=== PATIENT | female | born 1980 | race African-American/Black ===

== ENCOUNTER 2020-02-12 22:02 | Emergency (ER) | payer SELFPAY ==
[~2020-02-12] VITALS: Ht 152.4 cm; Wt 96.4 kg
[~2020-02-12 22:02] MED LIST: PNV1TABL17 PO
[2020-02-13] MEDS ORDERED: KETOROLAC TROMETHAMINE 30 MG/ML VIAL IM ONE (01:15)
[2020-02-13] MEDS ORDERED: HYDROCODONE/ACETAMINOPHEN 5-325 MG TABLET PO ONE (01:15)
[2020-02-13 01:39] VITALS: BP 133/89
== END 2020-02-13 01:49 | disposition home or self-care (01) ==
LOC: EMS 22:02
DX: K64.9 Unspecified hemorrhoids (principal); F12.90 Cannabis use, unspecified, uncomplicated
CPT/HCPCS: 96372; 99283; J1885

== ENCOUNTER 2021-10-17 20:24 | Emergency (ER) | payer MEDICAID ==
[~2021-10-17] VITALS: Ht 152.4 cm; Wt 106.8 kg
[2021-10-17 20:26] VITALS: BP 101/74
[2021-10-17] MEDS ORDERED: GABA-1181 PO (21:39)
[2021-10-17] MEDS ORDERED: NAPR-1025 PO (21:39)
[2021-10-17] MEDS ORDERED: KETOROLAC TROMETHAMINE 10 MG TABLET PO ONE (21:45)
== END 2021-10-17 22:02 | disposition home or self-care (01) ==
LOC: EMS 20:25
DX: M77.01 Medial epicondylitis, right elbow (principal); F12.90 Cannabis use, unspecified, uncomplicated; F17.290 Nicotine dependence, other tobacco product, uncomplicated; Z98.890 Other specified postprocedural states
CPT/HCPCS: 99282; 99283

== ENCOUNTER 2023-12-28 12:22 | Emergency (ER) | payer MEDICAID, OTHER ==
[~2023-12-28] VITALS: Ht 162.6 cm; Wt 86.4 kg
[~2023-12-28 12:22] MED LIST changes: +GABA-1181 PO; +NAPR-1025 PO; -PNV1TABL17 PO
[2023-12-28 12:25] VITALS: BP 137/71; PULSE 75; RESP 18; TEMP 98.6; O2SAT 99
== END 2023-12-28 15:35 | disposition left against medical advice (07) ==
LOC: EMS 13:11
DX: N93.9 Abnormal uterine and vaginal bleeding, unspecified (principal); Z53.21 Procedure and treatment not carried out due to patient leaving prior to being seen by health care provider

== ENCOUNTER 2023-12-31 10:43 | Emergency (ER) | payer OTHER ==
[~2023-12-31] VITALS: Ht 152.4 cm; Wt 104.5 kg
[2023-12-31 10:45] VITALS: TEMP 98.6
[2023-12-31 11:55] LABS: EOSINOPHILS % (AUTO) 2.1 % (1.0-6.0); HEMATOCRIT 42.3 % (36-46); HEMOGLOBIN 13.4 g/dL (12.0-16.0); LYMPHOCYTES # (AUTO) 4.2 K/uL (1.0-4.8); LYMPHOCYTES % (AUTO) 33.7 % (22.0-44.0); MEAN CORPUSCULAR HEMOGLOBIN 27.6 pg (26.0-34.0); MEAN CORPUSCULAR HGB CONC 31.7 G/dL (31.0-37.0); MEAN CORPUSCULAR VOLUME 87 fL (80-100); MONOCYTES # (AUTO) 0.8 K/uL (0.1-1.0); MONOCYTES % (AUTO) 6.3 % (2.0-9.0); NEUTROPHILS # (AUTO) 6.9 K/uL (1.8-7.7); NEUTROPHILS % (AUTO) 55.9 % (40.0-70.0); PLATELET COUNT (AUTO) 314 K/uL (150-450); RED BLOOD CELL COUNT(AUTO) 4.85 MIL/uL (4.00-5.20); WHITE BLOOD COUNT (AUTO) 12.3 K/uL (4.5-11.0)
[2023-12-31 12:08] LABS: ANION GAP 5 mmol/L (8-16); CARBON DIOXIDE 30 mmol/L (22-29); CHLORIDE 105 mmol/L (98-107); CREATININE 0.98 mg/dL (0.60-1.30); GLOMERULAR FILTR. RATE CALC > 60 mL/min (>60); GLUCOSE,RANDOM 90 mg/dL (70-110); POTASSIUM 4.5 mmol/L (3.5-5.1); SODIUM SERUM 140 mmol/L (136-145); UREA NITROGEN, BLOOD 11 mg/dL (7-18)
[2023-12-31 12:20] LABS: HCG,QUANTITATIVE < 1 mIU/mL (0-6)
[2023-12-31 12:40] VITALS: BP 133/76; PULSE 88; RESP 18; O2SAT 99
[2023-12-31] MEDS ORDERED: MEDR5TAB5 PO (12:41)
[2023-12-31] MEDS: MedroxyPROGESTERone ACET 5 MG TABLET PO ONE (13:11)
== END 2023-12-31 14:15 | disposition home or self-care (01) ==
LOC: EMS 10:59
DX: N93.8 Other specified abnormal uterine and vaginal bleeding (principal); D25.9 Leiomyoma of uterus, unspecified; F12.90 Cannabis use, unspecified, uncomplicated; F17.290 Nicotine dependence, other tobacco product, uncomplicated; Z98.890 Other specified postprocedural states
CPT/HCPCS: 76856; 80048; 84702; 85025; 86850; 86900; 86901; 99284

== ENCOUNTER 2024-03-22 09:49 | Emergency (ER) | payer OTHER ==
[~2024-03-22] VITALS: Ht 152.4 cm; Wt 100.0 kg
[~2024-03-22 09:49] MED LIST changes: -GABA-1181 PO; +MEDR5TAB5 PO; -NAPR-1025 PO
[2024-03-22 10:03] VITALS: TEMP 98
[2024-03-22] MEDS ORDERED: SEMA0.253 SQ (10:05)
[2024-03-22 11:02] LABS: BASOPHILS % (AUTO) 0.7 % (0.0-2.0); EOSINOPHILS % (AUTO) 0.2 % (1.0-6.0); HEMATOCRIT 41.8 % (36-46); HEMOGLOBIN 13.4 g/dL (12.0-16.0); LYMPHOCYTES # (AUTO) 1.9 K/uL (1.0-4.8); LYMPHOCYTES % (AUTO) 14.9 % (22.0-44.0); MEAN CORPUSCULAR HEMOGLOBIN 27.3 pg (26.0-34.0); MEAN CORPUSCULAR HGB CONC 32.1 G/dL (31.0-37.0); MEAN CORPUSCULAR VOLUME 85 fL (80-100); MONOCYTES # (AUTO) 0.5 K/uL (0.1-1.0); MONOCYTES % (AUTO) 3.7 % (2.0-9.0); NEUTROPHILS % (AUTO) 80.5 % (40.0-70.0); PLATELET COUNT (AUTO) 335 K/uL (150-450); RED BLOOD CELL COUNT(AUTO) 4.92 MIL/uL (4.00-5.20); RED CELL DISTRIBUTION WIDTH 13.9 % (11.5-14.5); WHITE BLOOD COUNT (AUTO) 12.5 K/uL (4.5-11.0)
[2024-03-22 11:03] LABS: APPEARANCE,URINE HAZY (CLEAR); BILIRUBIN,URINE NEGATIVE (NEGATIVE); COLOR,URINE YELLOW (YELLOW); GLUCOSE, URINE (UA) NEGATIVE (NEGATIVE); KETONES,URINE 80-100 mg/dL (NEGATIVE); LEUKOCYTE ESTERASE ,URINE SMALL (NEGATIVE); NITRATE,URINE NEGATIVE (NEGATIVE); OCCULT BLOOD,URINE NEGATIVE (NEGATIVE); PH,URINE 7.5 (5.0-8.0); PROTEIN,URINE 30-70 mg/dL (NEGATIVE); SPECIFIC GRAVITIY, URINE 1.031 (1.003-1.030); UROBILINOGEN,URINE <=1.0 mg/dL (<=1.0)
[2024-03-22 11:09] LABS: BACTERIA,URINE Few /HPF (None Seen); RBC,URINE None Seen /HPF (0-2); SQUAMOUS EPITHELIAL CELL,UR Few /LPF (None Seen)
[2024-03-22 11:16] LABS: ANION GAP 6 mmol/L (8-16); CALCIUM, TOTAL 9.2 mg/dL (8.8-10.5); CARBON DIOXIDE 28 mmol/L (22-29); CHLORIDE 105 mmol/L (98-107); CREATININE 0.89 mg/dL (0.60-1.30); GLOMERULAR FILTR. RATE CALC > 60 mL/min (>60); GLUCOSE,RANDOM 96 mg/dL (70-110); POTASSIUM 3.8 mmol/L (3.5-5.1); SODIUM SERUM 139 mmol/L (136-145); UREA NITROGEN, BLOOD 8 mg/dL (7-18)
[2024-03-22 11:29] LABS: HCG,QUANTITATIVE < 1 mIU/mL (0-6); LIPASE 17 U/L (16-77)
[2024-03-22] MEDS: KETOROLAC TROMETHAMINE 30 MG/ML VIAL IVP ONE (12:34)
[2024-03-22] MEDS: SODIUM CHLORIDE 0.9% 500 ML IV ONE (12:37)
[2024-03-22] MEDS: CefTRIAXone 1 GM/DEXTROSE 50 ML IV ONE (12:58)
[2024-03-22] MEDS ORDERED: CEPH-558 PO (14:20)
[2024-03-22] MEDS: OxyCODONE HCL/ACETAMINOPHEN 5-325 MG TABLET PO ONE (14:42)
[2024-03-22 15:30] VITALS: BP 144/66; PULSE 73; RESP 18; O2SAT 98
== END 2024-03-22 15:31 | disposition home or self-care (01) ==
LOC: EMS 09:50
DX: N39.0 Urinary tract infection, site not specified (principal); F12.90 Cannabis use, unspecified, uncomplicated; F17.290 Nicotine dependence, other tobacco product, uncomplicated
CPT/HCPCS: 99285; 74176; 96365; 96375; 80048; 81001; 83690; 84702; 85025; 87086; 36415; J1885; J0696

== ENCOUNTER 2025-01-17 17:17 | Emergency (ER) | payer OTHER ==
[~2025-01-17] VITALS: Ht 152.4 cm; Wt 95.0 kg
[~2025-01-17 17:17] MED LIST changes: +CEPH-558 PO; -MEDR5TAB5 PO; +SEMA0.253 SQ
[2025-01-17 17:31] VITALS: TEMP 97.5
[2025-01-17 17:58] LABS: PLATELET COUNT (AUTO) 279 K/uL (150-450)
[2025-01-17 18:01] LABS: CALCIUM, TOTAL 8.5 mg/dL (8.8-10.5); CREATININE 0.75 mg/dL (0.60-1.30); GLOMERULAR FILTR. RATE CALC > 60 mL/min (>60); GLUCOSE,RANDOM 84 mg/dL (70-110); SODIUM SERUM 141 mmol/L (136-145); UREA NITROGEN, BLOOD 12 mg/dL (7-18)
[2025-01-17 18:02] LABS: RED BLOOD CELL COUNT(AUTO) 4.85 MIL/uL (4.00-5.20); RED CELL DISTRIBUTION WIDTH 16.2 % (11.5-14.5); WHITE BLOOD COUNT (AUTO) 10.4 K/uL (4.5-11.0)
[2025-01-17 18:13] LABS: ASPARTATE AMINOTRANSFERASE 20.0 U/L (15-37); TOTAL PROTEIN, SERUM 6.1 g/dL (6.4-8.2)
[2025-01-17] MEDS: ACETAMINOPHEN 500 MG TABLET PO ONE (18:16)
[2025-01-17] MEDS: LIDOCAINE 5% TRANSDERMAL PATCH TD ONE (18:17)
[2025-01-17] MEDS: KETOROLAC TROMETHAMINE 30 MG/ML VIAL IM ONE (18:17)
[2025-01-17 18:18] VITALS: BP 105/58; PULSE 77; RESP 16; O2SAT 99
[2025-01-17 18:24] LABS: APPEARANCE,URINE CLEAR (CLEAR); GLUCOSE, URINE (UA) NEGATIVE (NEGATIVE); LEUKOCYTE ESTERASE ,URINE LARGE (NEGATIVE); NITRATE,URINE NEGATIVE (NEGATIVE); OCCULT BLOOD,URINE NEGATIVE (NEGATIVE); SPECIFIC GRAVITIY, URINE 1.021 (1.003-1.030)
[2025-01-17 18:55] LABS: SQUAMOUS EPITHELIAL CELL,UR Moderate /LPF (None Seen)
[2025-01-17] MEDS ORDERED: LIDO-57 TP (19:04)
[2025-01-17] MEDS ORDERED: CEPH-558 PO (19:04)
[2025-01-17] MEDS ORDERED: OXYC5 PO (19:04)
[2025-01-17] MEDS: CEPHALEXIN MONOHYDRATE 500 MG CAPSULE PO ONE (19:05)
== END 2025-01-17 19:15 | disposition home or self-care (01) ==
LOC: EMS 17:17
DX: S39.012A Strain of muscle, fascia and tendon of lower back, initial encounter (principal); M54.12 Radiculopathy, cervical region; N39.0 Urinary tract infection, site not specified; F12.90 Cannabis use, unspecified, uncomplicated; F17.290 Nicotine dependence, other tobacco product, uncomplicated; X58.XXXA Exposure to other specified factors, initial encounter; Y93.89 Activity, other specified; Y92.89 Other specified places as the place of occurrence of the external cause; Y99.8 Other external cause status
CPT/HCPCS: 99284; 80048; 80076; 81001; 83690; 84703; 85025; 87086; 36415; 96372; J1885